=== PATIENT | male | born 1930 | race Caucasian/White ===

== ENCOUNTER 2016-09-01 20:07 | Emergency (ER) | payer MEDICARE ==
[2016-09-01 20:16] LABS: BASOPHILS 0.3 %; BASOPHILS ABSOLUTE 0.02 10/3/uL (0.0-0.16); EOSINOPHILS ABSOLUTE 0.21 10/3/uL (0.0-0.53); HEMATOCRIT 35.9 % (40.0-51.0); HEMOGLOBIN 11.3 g/dL (13.6-17.8); LYMPHOCYTES 14.9 %; LYMPHOCYTES ABSOLUTE 1.03 10/3/uL (0.67-4.30); MEAN CORPUS HGB CONC 31.5 g/dL (32.0-36.0); MEAN CORPUSCULAR VOLUME 82.7 fL (80-100); MEAN PLATELET VOLUME 9.2 fL (9.2-13.0); MONOCYTES 8.7 %; NEUTROPHILS 73.1 %; NEUTROPHILS ABSOLUTE 5.07 10/3/uL (2.02-8.40); PLATELET COUNT 229 10/3/uL (150-400); RBC DISTRIBUTION WIDTH 17.7 % (12.0-16.0); RED CELL COUNT 4.34 10/6/uL (4.7-6.1); WHITE BLOOD CELLS 6.9 10/3/uL (4.5-10.5)
[2016-09-01 20:18] LABS: MANUAL DIFF NO %
[2016-09-01] MEDS ORDERED: PRILO PO (20:23)
[2016-09-01] MEDS ORDERED: FERROUS SULF325 M1 PO (20:23)
[2016-09-01] MEDS ORDERED: FISH-EPA1000 MG PO (20:24)
[2016-09-01] MEDS ORDERED: VITC500 PO (20:24)
[2016-09-01] MEDS ORDERED: GARLIC OIL PO (20:25)
[2016-09-01] MEDS ORDERED: PERI-COLACE1 TAB PO (20:27)
[2016-09-01] MEDS ORDERED: ZOLOFT25 MG PO (20:28)
[2016-09-01] MEDS ORDERED: SUCR PO (20:32)
[2016-09-01] MEDS ORDERED: BANOPHEN25 MG PO (20:34)
[2016-09-01] MEDS ORDERED: TRAZ50 PO (20:34)
[2016-09-01] MEDS ORDERED: ANOROELLIPTA INH (20:35)
[2016-09-01 20:36] LABS: INTERNATIONAL NORMAL RATI 1.1 UNITS (-); PARTIAL THROMBO TIME 36.4 SEC (22.5-37.2)
[2016-09-01] MEDS ORDERED: ALBUTEROL0.083 % INH (20:37)
[2016-09-01] MEDS ORDERED: VENTOLIN HFA INH (20:38)
[2016-09-01 21:43] LABS: A/G RATIO 0.6 (0.7-1.9); ALBUMIN 3.1 G/DL (3.5-5.0); ALKALINE PHOSPHATASE 134 U/L (45-117); BUN (BLOOD UREA NITROGEN) 30 MG/DL (6-23); CHLORIDE, SERUM 103 MMOL/L (96-112); CO2 (CARBON DIOXIDE) 32 MMOL/L (24-34); CREATININE 1.06 MG/DL (0.70-1.30); GFR AFRICAN AMERICAN 73 ML/MIN (>=60); GFR NON AFRICAN AMERICAN 63 ML/MIN (>=60); GLOBULIN 4.9 G/DL (2.5-4.1); GLUCOSE, SERUM 95 MG/DL (60-99); POTASSIUM, SERUM 4.6 MMOL/L (3.5-5.3); SGOT(AST) 12 U/L (5-40); SGPT(ALT) 14 U/L (5-65); SODIUM, SERUM 138 MMOL/L (135-148); TOTAL BILIRUBIN 0.2 MG/DL (0-1.2)
[2016-09-01 22:02] LABS: WBC (NOT ORDERED) (RFLEX) 0 (0-5)
[2016-09-01 22:13] LABS: ASCORBIC ACID (UR NOT ORDER) 40 (NEG); BILIRUBIN, URINE NEGATIVE (NEG); ER URINALYSIS TAT 0 Hrs 11 Mins; KETONE, URINE NEGATIVE (NEG); LEUKOCYTE ESTERASE(NOT OR NEG (NEG); NITRITE (URINE) NEG (NEG)
[2016-09-01 22:32] LABS: TROPONIN I <0.02 NG/ML (<0.05)
== END 2016-09-01 23:42 | disposition home or self-care (01) ==
LOC: ER 20:07
PROVIDERS: Nurse Practitioner
DX: R42 Dizziness and giddiness (principal); K92.1 Melena; D53.9 Nutritional anemia, unspecified; K21.9 Gastro-esophageal reflux disease without esophagitis; E78.00 Pure hypercholesterolemia, unspecified; I48.91 Unspecified atrial fibrillation; Z88.0 Allergy status to penicillin; Z91.018 Allergy to other foods; Z79.899 Other long term (current) drug therapy
CPT/HCPCS: 36415; 80053; 81001; 84484; 85025; 85610; 85730; 86850; 86900; 86901; 93005; 99284